=== PATIENT | male | born 1950 | race Caucasian/White ===

== ENCOUNTER 2019-03-16 13:05 | Inpatient (IN) | payer MEDICARE ==
[~2019-03-16 13:05] MED LIST: Iopamidol 370 76% 100 ML VIAL ONE
[2019-03-16 14:11] LABS: Hemoglobin 15.3 g/dL (14.0-18.0); Mean Corpuscular HGB CONC 33.7 g/dL (32.0-36.0); Mean Corpuscular Hemoglobin 33.5 pg (27.0-31.0); Mean Corpuscular Volume 99.4 fL (78.0-98.0); Platelet Count 154 thou/uL (130-400); RBC Distribution Width 11.8 % (11.5-14.5); Red Blood Cell (RBC) Count 4.56 mill/uL (4.70-6.10); White Blood Cell (WBC) Count 8.2 thou/uL (4.8-10.8)
[2019-03-16 14:26] LABS: Eosinophils 4 % (0-10); Lymphocytes 33 % (21-51); MDiff Complete? YES; Monocytes 9 % (0-10); Neutrophil 54 % (42-75); Platelet Clumps SLIGHT; Platelet Morphology Comment Appears Adequate; RBC Morphology Normal
[2019-03-16 14:37] LABS: ALT (SGPT) 31 U/L (8-55); AST (SGOT) 33 U/L (5-34); Albumin 4.5 g/dL (3.4-4.8); Alkaline Phosphatase 69 U/L (40-150); Anion Gap 15 mmol/L (10-20); BUN (Urea Nitrogen) 17 mg/dL (8.4-25.7); Bilirubin, Total 0.4 mg/dL (0.2-1.2); Calc. Creatinine Clearance 0 mL/min (70-130); Calcium 9.7 mg/dL (7.8-10.44); Carbon Dioxide 24 mmol/L (23-31); Cardiac Risk 5.6 (Less than 4.5); Chloride 104 mmol/L (98-107); Cholesterol 167 mg/dl (< 200 Desired); Estimated GFR-MDRD 61; Globulin 3.5 g/dL (2.4-3.5); Glucose 91 mg/dL (80-115); HDL Cholesterol 30 mg/dL (>60 Neg Risk); LDL Cholesterol, Calculated 69 mg/dL; Sodium 138 mmol/L (136-145); Triglycerides 341 mg/dL (Less than 150)
[2019-03-16] MEDS ORDERED: Lidocaine 1% (PF) 30 ML VIAL ONE (15:16)
[2019-03-16] MEDS ORDERED: Nitroglycerin 100MG/250ML BOT 250 ML ONE (15:31)
[2019-03-16] MEDS ORDERED: Heparin 10,000 UNITS/1 ML VIAL ONE (15:31)
[2019-03-16] MEDS ORDERED: Verapamil 5 MG/2 ML VIAL ONE (15:34)
[2019-03-16] MEDS ORDERED: Adenosine 6 MG/2 ML VIAL ONE (15:34)
[2019-03-16] MEDS ORDERED: Heparin 25,000 units/D5W 500 ML ONE (15:52)
[2019-03-16] MEDS ORDERED: Nitroglycerin 50 MG/250 ML BOT 250 ML ONE (15:52)
[2019-03-16] MEDS ORDERED: Nitroglycerin 50 MG/250 ML BOT 250 ML IVPB SCH (16:00)
[2019-03-16] MEDS ORDERED: Heparin 10,000 UNITS/ 10 ML VIAL SLOW IVP SCH (16:00)
[2019-03-16] MEDS ORDERED: Heparin 25,000 units/D5W 500 ML IVPB SCH (16:00)
[2019-03-16] MEDS ORDERED: Sodium Chloride 0.9% 200 ML IV PRN (16:10)
[2019-03-16] MEDS ORDERED: Acetaminophen/Codeine 30-300mg Tablet PO PRN ×2 (16:10)
[2019-03-16] MEDS ORDERED: Sodium Chloride 0.9% 1,000 ML IV SCH (16:10)
[2019-03-16] MEDS ORDERED: Nitroglycerin 0.4 MG TAB (25 Tab Bottle) SL PRN (16:10)
[2019-03-16] MEDS ORDERED: Communication Order-Pharmacy FS SCH (16:31)
[2019-03-16 17:27] LABS: Hemoglobin 15.2 g/dL (14.0-18.0); Platelet Count 241 thou/uL (130-400)
--- NOTE | 2019-03-16 20:18 | CON ---
DATE OF CONSULTATION: HISTORY OF PRESENT ILLNESS: A 68-year-old gentleman with a history of hypertension and dyslipidemia, and family history of heart disease, who has had about 2-3 months of chest pain with exertion and shortness of breath, perhaps for a year or so. 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 His says he leaves early in the morning and comes back late in the day. He saw Dr. Hsu today in the office and was brought in for cardiac catheterization showing relatively well-preserved left ventricular systolic function. The patient had extensive and diffuse coronary artery disease. Potential targets included a distal PDA, posterolateral, one or two proximal OM branches. The LAD may or may not be bypassable as it is diffusely and severely diseased throughout its entire course. Similarly, the distal circumflex which is occluded and fills from the right system, does not appear to be large enough after it exits groove to suggest bypass grafting. PAST SURGICAL HISTORY: Negative. SOCIAL HISTORY: The patient does not smoke since 1971. He drinks beer on a daily basis. He is . PHYSICAL EXAMINATION: GENERAL: On examination, he is alert and cooperative gentleman. VITAL SIGNS: Weighing 211 pounds, height 6 feet 1 inch. NECK: No carotid bruits. LUNGS: Clear to auscultation. CARDIAC: Regular rate and rhythm. No murmurs. ABDOMEN: Soft, nontender. No aneurysm. EXTREMITIES: He has palpable femoral and dorsalis pedis pulses bilaterally with no peripheral edema. He has a compression dressing on his right wrist and his left radial is palpable, and his Logan's test appears to be satisfactory. PLAN: At this time is for multi-vessel grafting, although this will be an incomplete revascularization and his LAD maybe a non-bypassable vessel. In any event, attempt at grafting two obtuse marginals and vessels in the right system should be able to be done. Informed consent has been obtained. Job ID: [id number]
[2019-03-17] MEDS ORDERED: Albumin 5% 500 ML ONE (06:34)
[2019-03-17] MEDS ORDERED: Fentanyl 250 MCG/5 ML VIAL ONE ×2 (09:28)
[2019-03-17] MEDS ORDERED: Midazolam HCl 5 mg/5 ml Vial ONE (09:28)
[2019-03-17] MEDS ORDERED: Heparin 10,000 UNITS/1 ML VIAL 30,000 UNITS in Sodium Chloride 0.9% 1,000 ML FS SCH (10:15)
[2019-03-17] MEDS ORDERED: Thrombin 5000 UNITS/5 ML VIAL ONE (10:37)
[2019-03-17] MEDS ORDERED: Protamine Sulfate 250 MG/25 ML VIAL ONE (10:37)
[2019-03-17] MEDS ORDERED: Aminocaproic Acid 5 GM/20 ML VIAL ONE (10:37)
[2019-03-17] MEDS ORDERED: Cardioplegic Soln 1,000 ML BAG ONE (10:37)
[2019-03-17] MEDS ORDERED: PROPOFOL 200 MG/20 ML VIAL ONE (10:37)
[2019-03-17] MEDS ORDERED: Vecuronium 10 MG VIAL ONE (10:37)
[2019-03-17] MEDS ORDERED: Lidocaine 2% PF 100 mg/5 ml Syringe ONE (10:37)
[2019-03-17] MEDS ORDERED: Magnesium 5 GM/10 ML VIAL ONE (10:37)
[2019-03-17] MEDS ORDERED: Heparin 30,000 units/30 ml VIAL ONE (10:37)
[2019-03-17] MEDS ORDERED: Heparin 5,000 UNITS/ML VIAL ONE (10:37)
[2019-03-17] MEDS ORDERED: Mannitol 12.5 GM/50 ML ONE (10:37)
[2019-03-17] MEDS ORDERED: Papaverine 60 MG/2 ML VIAL ONE (10:37)
[2019-03-17] MEDS ORDERED: Rocuronium Bromide 10 MG/ML (10ML VIAL) ONE (10:37)
[2019-03-17] MEDS ORDERED: Calcium Chloride 1 GM/10 ML Abboject SYRINGE ONE (10:37)
[2019-03-17] MEDS ORDERED: Potassium Chloride 60 MEQ/30 ML VIAL ONE (10:37)
[2019-03-17] MEDS ORDERED: Sodium Bicarb 50 MEQ/50 ML VIAL ONE ×2 (10:37→16:59)
[2019-03-17] MEDS ORDERED: PHENYLEPHRINE-NS 100 MCG/ML 10 ML SYRINGE ONE (10:37)
--- NOTE | 2019-03-17 11:54 | PRG ---
DATE OF SERVICE: 03/17/2019 SUBJECTIVE: Mr. Mariano is doing well. He did have an episode of chest pain that was short-lived. He is currently chest pain free. He is on IV nitroglycerin and heparin. OBJECTIVE: VITAL SIGNS: Blood pressure 159/81, pulse 66, and temperature afebrile. LUNGS: Clear to auscultation. HEART: Regular rate and rhythm. ABDOMEN: Soft, nontender, and nondistended. EXTREMITIES: No edema. DIAGNOSTIC DATA: Echo with Doppler shows LVEF 50% to 55%. No significant MR or TR present. IMPRESSION: 1. Severe coronary artery disease. 2. Angina. RECOMMENDATIONS: The patient is planning on proceeding with bypass surgery today. No further recommendations. Job ID: [id number]
[2019-03-17] MEDS ORDERED: Phenylephrine HCL 10 MG/ML VIAL ONE (11:57)
--- NOTE | 2019-03-17 12:11 | CON ---
DATE OF CONSULTATION: HISTORY OF PRESENT ILLNESS: Rohith Mariano is a 68-year-old gentleman, long history of smoking, quit smoking in 1971. Presented with chest pain and shortness of breath. Underwent cardiac catheterization, showed carotid disease. He is scheduled for bypass surgery today. On further questioning him, no prior history of pneumonia, TB, or asthma. He does snore, does wake himself up, he may have sleep apnea. PAST MEDICAL HISTORY: Otherwise unremarkable for any major medical problems. PAST SURGICAL HISTORY: Previous surgeries none. HOME MEDICATIONS: 1. Zocor. 2. Aspirin. ALLERGIES: NONE. SOCIAL HISTORY: Unremarkable. FAMILY HISTORY: Unremarkable. REVIEW OF SYSTEMS: Negative. PHYSICAL EXAMINATION: VITAL SIGNS: Saturations are 96% on room air, pulse 63, respiratory rate 18, and blood pressure 118/76. CHEST: No wheezing or crackles. CARDIAC: Normal S1 and S2. No gallops. ABDOMEN: No masses. LABORATORY DATA: White count 8000. His lytes are normal. Creatinine 1.8. IMPRESSION AND PLAN: 1. Coronary artery disease. 2. Former smoker. 3. Probably sleep apnea. Pulmonary/Critical Care will follow while in the ICU, probably we will do an outpatient sleep study. Consultation note, 70 minutes, 50% direct patient care. Job ID: [id number]
[2019-03-17] MEDS ORDERED: Rocuronium Bromide 50 MG/5 ML VIAL ONE (14:34)
[2019-03-17] MEDS ORDERED: Albumin 5% 250 ML ONE ×2 (15:25→15:40)
[2019-03-17] MEDS ORDERED: DOPamine 400 MG/D5W 250 ML 250 ML ONE (15:41)
[2019-03-17] MEDS ORDERED: Ondansetron PF 4 MG/2 ML Vial IVP PRN (15:44)
[2019-03-17] MEDS ORDERED: Fentanyl 100 MCG/2 ML VIAL SLOW IVP PRN ×2 (15:44)
[2019-03-17] MEDS ORDERED: Mag-Al 1200 mg/1200 mg/30 ML UDCUP PO PRN (15:44)
[2019-03-17] MEDS ORDERED: Acetaminophen 325 MG TAB PO PRN (15:44)
[2019-03-17] MEDS ORDERED: Promethazine HCl 25 MG/ML VIAL IM PRN (15:44)
[2019-03-17] MEDS ORDERED: Potassium Chloride 20 MEQ/100 ML PREMIX BAG IVPB PRN (15:44)
[2019-03-17] MEDS ORDERED: Post-Op Insulin Drip Protocol IVPB ONE (15:44)
[2019-03-17] MEDS ORDERED: Morphine 2 MG/ML SYRINGE SLOW IVP PRN (15:44)
[2019-03-17] MEDS ORDERED: Bisacodyl 5 MG TAB PO PRN (15:44)
[2019-03-17] MEDS ORDERED: DOPamine 400 MG/D5W 250 ML 250 ML IVPB PRN (15:44)
[2019-03-17] MEDS ORDERED: Nitroglycerin 50 MG/250 ML BOT 250 ML IVPB PRN (15:44)
[2019-03-17] MEDS ORDERED: Magnesium 2 GM/50 ML 2 GM in Premix Bag 1 BAG IVPB SCH (15:44)
[2019-03-17] MEDS ORDERED: Norepinephrine 8 MG/0.9% NS 250 ML IVPB PRN (15:44)
[2019-03-17] MEDS ORDERED: Hetastarch 6% 500 ML 500 ML IVPB PRN (15:44)
[2019-03-17] MEDS ORDERED: Bisacodyl 10 MG SUPP PR PRN (15:44)
[2019-03-17] MEDS ORDERED: Guaifenesin DM 100-10/5 ML UDCUP PO PRN (15:44)
[2019-03-17] MEDS ORDERED: niCARdipine 25 MG in Sodium Chloride 0.9% 250 ML 250 ML IVPB PRN (15:44)
[2019-03-17] MEDS ORDERED: hydrALAZINE 20 MG/ML VIAL SLOW IVP PRN (15:44)
[2019-03-17] MEDS ORDERED: Norepinephrine 8 MG in Dextrose 5% in Water 242 ML IVPB PRN (15:49)
[2019-03-17] MEDS ORDERED: HUMULIN R 100 UNITS in Sodium Chloride 0.9% 100 ML IVPB SCH (15:51)
[2019-03-17] MEDS ORDERED: Dextrose 50% Abboject 50 ML SYRINGE SLOW IVP PRN (15:51)
[2019-03-17] MEDS ORDERED: Dextrose 5% in Water 1,000 ML IV PRN (15:51)
[2019-03-17 15:55] LABS: #Eosinphils 0.1 thou/uL (0.0-0.7); #Lymphocytes 2.3 thou/uL (1.20-3.40); #Monocytes 1.1 thou/uL (0.11-0.59); %Basophils 0.1 % (0.0-1.0); %Eosinophils 0.6 % (0.0-10.0); %Lymphocytes 11.7 % (21.0-51.0); %Monocytes 5.8 % (0.0-10.0); %Neutrophils 81.8 % (42.0-75.0); Hemoglobin 13.5 g/dL (14.0-18.0); Mean Corpuscular HGB CONC 34.6 g/dL (32.0-36.0); Mean Corpuscular Hemoglobin 34.5 pg (27.0-31.0); Mean Corpuscular Volume 99.7 fL (78.0-98.0); Mean Platelet Volume 8.1 fL (7.4-10.4); Platelet Count 163 thou/uL (130-400); RBC Distribution Width 11.7 % (11.5-14.5); Red Blood Cell (RBC) Count 3.92 mill/uL (4.70-6.10); White Blood Cell (WBC) Count 19.5 thou/uL (4.8-10.8)
--- NOTE | 2019-03-17 15:57 | RAD ---
Portable frontal chest radiograph: 03/17/2019 COMPARISON: None HISTORY: Evaluate chest following open heart surgery FINDINGS: Endotracheal tube noted in the proper position. Right vascular catheter present. Midline sternotomy wires are present. Postsurgical drainage catheters overlie the mediastinum and lef t lung base. No lobar consolidation or alveolar edema. Supine imaging limits assessment for pleural fluid and pneumothorax. IMPRESSION: Postoperative changes as above.
[2019-03-17] MEDS: Lactated Ringer's 1,000 ML IV SCH (15:58)
[2019-03-17 16:06] LABS: INR-International Normal Ratio 1.3; PTT 24.9 SEC (22.9-36.1); Prothrombin Time 16.1 SEC (12.0-14.7)
[2019-03-17 16:11] LABS: Actual Bicarbonate (HCO3a) 18.5 mEq/L (22-28); Base Excess (BEa) -7.3 mEq/L (-2.0 to +3.0); CO2 Tension 38.2 mmHg (35.0-45.0); Calcium, Ionized 1.08 mmol/L (1.12-1.30); Carboxyhemoglobin (COHb) 1.1 gm% (0.0-3.0); Hemoglobin (Hb) 13.1 g/dL (14.0-18.0); O2 Tension (PaO2) 97.8 mmHg (> 70.0); Potassium - ABG Lab 4.04 mmol/L (3.70-5.30)
[2019-03-17 16:12] LABS: Anion Gap 11 mmol/L (10-20); BUN (Urea Nitrogen) 12 mg/dL (8.4-25.7); Calc. Creatinine Clearance 102 mL/min (70-130); Calcium 7.9 mg/dL (7.8-10.44); Carbon Dioxide 22 mmol/L (23-31); Chloride 109 mmol/L (98-107); Estimated GFR-MDRD 82; Glucose 106 mg/dL (80-115); Potassium 4.3 mmol/L (3.5-5.1); Sodium 138 mmol/L (136-145)
[2019-03-17 16:15] LABS: Puncture Site ALINE
[2019-03-17] MEDS: Ketorolac Tromethamine 30 MG/ML VIAL IVP SCH (18:17)
[2019-03-17] MEDS: CEFAZOLIN 2 GM in Premix Bag 1 BAG IVPB SCH (18:21)
[2019-03-17] MEDS: Insulin Regular 300 UNITS/3 ML VIAL SC PRN (20:21)
[2019-03-17] MEDS: Famotidine/PF 20 mg/2ml Vial SLOW IVP SCH (20:21)
[2019-03-17] MEDS ORDERED: Simvastatin 40 MG TAB PO SCH (21:00)
[2019-03-17 21:37] LABS: Actual Bicarbonate (HCO3a) 22.7 mEq/L (22-28); CO2 Tension 38.3 mmHg (35.0-45.0); Calcium, Ionized 1.04 mmol/L (1.12-1.30); Carboxyhemoglobin (COHb) 0.9 gm% (0.0-3.0); Hemoglobin (Hb) 12.2 g/dL (14.0-18.0); O2 Tension (PaO2) 79.5 mmHg (> 70.0); Potassium - ABG Lab 4.14 mmol/L (3.70-5.30); pH, Arterial 7.39 (7.35-7.45)
[2019-03-17 21:40] LABS: Hemoglobin 11.9 g/dL (14.0-18.0)
[2019-03-17 21:49] LABS: Potassium 4.2 mmol/L (3.5-5.1)
[2019-03-17 22:01] LABS: ALV-art Gradient 157.825 (0-20); Puncture Site LINE
[2019-03-18] MEDS: Ketorolac Tromethamine 30 MG/ML VIAL IVP SCH ×4 (00:11→17:27)
[2019-03-18] MEDS: Insulin Regular 300 UNITS/3 ML VIAL SC PRN ×4 (00:14→17:27)
[2019-03-18] MEDS: CEFAZOLIN 2 GM in Premix Bag 1 BAG IVPB SCH ×2 (01:03→09:46)
[2019-03-18] MEDS: HYDROcodone/Acetaminophen 5/325 mg Tablet PO PRN ×4 (03:30→20:04)
[2019-03-18 04:32] LABS: #Lymphocytes 0.8 thou/uL (1.20-3.40); #Monocytes 0.7 thou/uL (0.11-0.59); #Neutrophils 9.1 thou/uL (1.40-6.50); %Lymphocytes 7.3 % (21.0-51.0); %Monocytes 6.6 % (0.0-10.0); %Neutrophils 86.1 % (42.0-75.0); Hemoglobin 10.8 g/dL (14.0-18.0); Mean Corpuscular HGB CONC 34.8 g/dL (32.0-36.0); Mean Corpuscular Hemoglobin 34.7 pg (27.0-31.0); Mean Corpuscular Volume 99.7 fL (78.0-98.0); Mean Platelet Volume 8.8 fL (7.4-10.4); Platelet Count 154 thou/uL (130-400); RBC Distribution Width 11.6 % (11.5-14.5); Red Blood Cell (RBC) Count 3.12 mill/uL (4.70-6.10); White Blood Cell (WBC) Count 10.6 thou/uL (4.8-10.8)
[2019-03-18 04:49] LABS: Anion Gap 11 mmol/L (10-20); BUN (Urea Nitrogen) 15 mg/dL (8.4-25.7); Calc. Creatinine Clearance 103 mL/min (70-130); Calcium 7.8 mg/dL (7.8-10.44); Carbon Dioxide 23 mmol/L (23-31); Chloride 109 mmol/L (98-107); Estimated GFR-MDRD 83; Glucose 124 mg/dL (80-115); Sodium 139 mmol/L (136-145)
[2019-03-18] MEDS: Lactated Ringer's 1,000 ML IV SCH ×2 (07:01→13:35)
--- NOTE | 2019-03-18 07:59 | RAD ---
Chest AP view INDICATION: Status post open-heart surgery COMPARISON: March 17, 2019 FINDINGS: Lungs:There is worsening bibasilar atelectasis Cardiac silhouette:There is stable mild cardiomegaly Pulmonary vasculature:Normal Pleural spaces:No pleural effusion or pneumothorax is demonstrated. Upper abdomen:No abnormality seen. Osseous structures: No acute osseous abnormality. Additional findings:The patient has been intervally extubated. Right subclavian central venous cathet er is unchanged in position. IMPRESSION: Interval extubation. Development of bibasilar atelectasis. Repeat chest radiograph with i mproved aeration is recommended. No pneumothorax. Stable cardiomegaly.
--- NOTE | 2019-03-18 08:23 | OP ---
DATE OF PROCEDURE: 03/17/2019 PREOPERATIVE DIAGNOSIS: Coronary artery disease, diffuse severe disease. PROCEDURE: Coronary artery bypass graft x5, good quality LEAL to a poor-quality LAD as expected, saphenous vein good quality to a 1.5 mm acute marginal and 1.25 mm posterior lateral. PDA was non-bypassable. The radial artery from the left arm to the OM-2 which was a surprisingly diseased vessel and had to be done after the bifurcation due to heavy calcification proximal to this. Saphenous vein graft to a 1.5 mm OM1. ASSISTANTS: Zoran. DESCRIPTION OF PROCEDURE: After adequate anesthesia had been obtained, the patient was prepped and draped and Dr. Last did an endovascular vein harvest of the left greater saphenous vein while I performed a left radial artery harvest. Radial artery harvest was performed for anticipated OM graft. Following completion of this, and after ensuring good collateral flow prior to dividing the vessel, sternotomy was performed and the left internal mammary artery was harvested, divided distally and passed posterior to the thymus gland. Aorta and right atrium were cannulated. Cardiopulmonary bypass was begun. Aorta was crossclamped. A liter of cold blood cardioplegia given through the aortic root. The heart was not enlarged or thickened. Distal anastomoses were all completed, following which the cross-clamp was removed and the partial occluding clamp placed and the acute marginal vein graft was anastomosed to the aortic root as well as the OM-1 graft. To the aden of the OM-1 graft, the radial artery was anastomosed. The partial occluding clamp was removed and the posterolateral vein graft was anastomosed to the side of the acute marginal graft. The patient was then weaned from cardiopulmonary bypass. Cannula was removed and aortic cannulation site secured with a Prolene suture. Mediastinal and left pleural drains were placed, following which the sternum was reapproximated with #7 interrupted wire. Vancomycin paste was used on the sternal edges. Subcutaneous tissue and skin were closed in layers. The patient is to be taken to the ICU in guarded condition. No reoperation due to poor targets. Job ID: [id number]
[2019-03-18] MEDS: Famotidine/PF 20 mg/2ml Vial SLOW IVP SCH ×2 (08:27→20:10)
[2019-03-18] MEDS: Aspirin 325 MG TAB PO SCH (08:27)
--- NOTE | 2019-03-18 09:34 | PRG ---
DATE OF SERVICE: 03/18/2019 SUBJECTIVE: This morning, he is extubated post CABG. No distress. He is complaining of congestion, coughing up some light yellow sputum. OBJECTIVE: VITAL SIGNS: Temperature is 97, pulse 81, saturations are 90%, blood pressure 99/59. CHEST: Minimal rhonchi. CARDIAC: Normal S1 and S2. No gallops. ABDOMEN: No masses. LABORATORY DATA: White count 10,000. Lytes are normal. IMAGING DATA: X-ray shows minimal bibasilar atelectatic changes. IMPRESSION: 1. Status post coronary artery bypass grafting. 2. Congestive heart failure. 3. Bronchitis. PLAN: Continue PT, supportive care. We will follow while in the ICU. Outpatient sleep study. Job ID: [id number]
[2019-03-18 15:01] LABS: Actual Bicarbonate (HCO3a) 22.1 mEq/L (22-28); Analyzer IN Cardio OR; Base Excess (BEa) -1.4 mEq/L (-2.0 to +3.0); CO2 Tension 33.9 mmHg (35.0-45.0); Calcium, Ionized 1.09 mmol/L (1.12-1.30); Carboxyhemoglobin (COHb) 0.3 gm% (0.0-3.0); Hemoglobin (Hb) 13.2 g/dL (14.0-18.0); O2 Tension (PaO2) 396.1 mmHg (> 70.0); Potassium - ABG Lab 3.95 mmol/L (3.70-5.30); pH, Arterial 7.43 (7.35-7.45)
[2019-03-18 15:02] LABS: Actual Bicarbonate (HCO3a) 23.9 mEq/L (22-28); Analyzer IN Cardio OR; Base Excess (BEa) -1.6 mEq/L (-2.0 to +3.0); CO2 Tension 43.1 mmHg (35.0-45.0); Calcium, Ionized 1.06 mmol/L (1.12-1.30); Carboxyhemoglobin (COHb) 0.3 gm% (0.0-3.0); Hemoglobin (Hb) 12.7 g/dL (14.0-18.0); O2 Tension (PaO2) 431.9 mmHg (> 70.0); Potassium - ABG Lab 4.28 mmol/L (3.70-5.30); pH, Arterial 7.36 (7.35-7.45)
[2019-03-18 15:02] LABS: Analyzer IN Cardio OR; Base Excess (BEa) -1.5 mEq/L (-2.0 to +3.0); Calcium, Ionized 0.95 mmol/L (1.12-1.30); Carboxyhemoglobin (COHb) 0.1 gm% (0.0-3.0); Hemoglobin (Hb) 10.9 g/dL (14.0-18.0); O2 Tension (PaO2) 477.5 mmHg (> 70.0); Potassium - ABG Lab 5.03 mmol/L (3.70-5.30); pH, Arterial 7.44 (7.35-7.45)
[2019-03-18 15:03] LABS: Actual Bicarbonate (HCO3v) 25 mEq/L (22-28); Analyzer IN Cardio OR; Calcium, Ionized 1.01 mmol/L (1.16-1.32); Chloride (ABG LAB) 105 mmol/L (98-106); Hemoglobin (Hb) 10.7 g/dL (12.6-17.4); Potassium - ABG Lab 4.97 mmol/L (3.70-5.30); Sodium 136.1 mmol/L (133-146); pH (venous) 7.39 (7.32-7.43)
[2019-03-18 15:03] LABS: Analyzer IN Cardio OR; Base Excess (BEa) -1.1 mEq/L (-2.0 to +3.0); Calcium, Ionized 1.01 mmol/L (1.12-1.30); Carboxyhemoglobin (COHb) 0.3 gm% (0.0-3.0); Hemoglobin (Hb) 11.1 g/dL (14.0-18.0); O2 Tension (PaO2) 478.2 mmHg (> 70.0); Potassium - ABG Lab 5.19 mmol/L (3.70-5.30); pH, Arterial 7.34 (7.35-7.45)
[2019-03-18 15:04] LABS: Actual Bicarbonate (HCO3a) 22.8 mEq/L (22-28); Analyzer IN Cardio OR; Base Excess (BEa) -2.2 mEq/L (-2.0 to +3.0); CO2 Tension 40.3 mmHg (35.0-45.0); Calcium, Ionized 1.09 mmol/L (1.12-1.30); Carboxyhemoglobin (COHb) 0.4 gm% (0.0-3.0); O2 Tension (PaO2) 372.1 mmHg (> 70.0); Potassium - ABG Lab 4.47 mmol/L (3.70-5.30); pH, Arterial 7.37 (7.35-7.45)
[2019-03-18 15:04] LABS: Actual Bicarbonate (HCO3a) 23.1 mEq/L (22-28); Analyzer IN Cardio OR; Base Excess (BEa) -2.1 mEq/L (-2.0 to +3.0); CO2 Tension 41.4 mmHg (35.0-45.0); Calcium, Ionized 1.11 mmol/L (1.12-1.30); Carboxyhemoglobin (COHb) 0.1 gm% (0.0-3.0); Hemoglobin (Hb) 11.2 g/dL (14.0-18.0); O2 Tension (PaO2) 329.1 mmHg (> 70.0); Potassium - ABG Lab 4.77 mmol/L (3.70-5.30); pH, Arterial 7.37 (7.35-7.45)
[2019-03-18 15:06] LABS: Puncture Site ALINE
[2019-03-18 15:07] LABS: Puncture Site ALINE
[2019-03-18 15:07] LABS: Puncture Site ALINE
[2019-03-18 15:08] LABS: Puncture Site ALINE
[2019-03-18 15:08] LABS: Puncture Site ALINE
[2019-03-18 15:09] LABS: Puncture Site ALINE
[2019-03-18] MEDS: Atorvastatin Calcium 40 MG TAB PO SCH (20:10)
[2019-03-19] MEDS: Ketorolac Tromethamine 30 MG/ML VIAL IVP SCH ×4 (00:13→17:56)
[2019-03-19 04:44] LABS: #Lymphocytes 1.2 thou/uL (1.20-3.40); #Monocytes 1.2 thou/uL (0.11-0.59); #Neutrophils 11.9 thou/uL (1.40-6.50); %Basophils 0.1 % (0.0-1.0); %Lymphocytes 8.6 % (21.0-51.0); %Monocytes 8.3 % (0.0-10.0); Hemoglobin 12.2 g/dL (14.0-18.0); Mean Corpuscular HGB CONC 34.7 g/dL (32.0-36.0); Mean Corpuscular Hemoglobin 32.8 pg (27.0-31.0); Mean Corpuscular Volume 94.4 fL (78.0-98.0); Platelet Count 198 thou/uL (130-400); RBC Distribution Width 11.4 % (11.5-14.5); Red Blood Cell (RBC) Count 3.73 mill/uL (4.70-6.10); White Blood Cell (WBC) Count 14.4 thou/uL (4.8-10.8)
[2019-03-19 05:11] VITALS: BMI 28.5
[2019-03-19 05:12] LABS: Anion Gap 9 mmol/L (10-20); BUN (Urea Nitrogen) 16 mg/dL (8.4-25.7); Calc. Creatinine Clearance 89 mL/min (70-130); Calcium 7.8 mg/dL (7.8-10.44); Carbon Dioxide 24 mmol/L (23-31); Chloride 106 mmol/L (98-107); Estimated GFR-MDRD 68; Glucose 148 mg/dL (80-115); Potassium 4.3 mmol/L (3.5-5.1); Sodium 135 mmol/L (136-145)
[2019-03-19] MEDS: Famotidine/PF 20 mg/2ml Vial SLOW IVP SCH (08:44)
[2019-03-19] MEDS: Aspirin 325 MG TAB PO SCH (08:44)
--- NOTE | 2019-03-19 09:57 | RAD ---
FRONTAL RADIOGRAPH OF CHEST PORTABLE UPRIGHT: Date: 03/19/19 COMPARISON: 03/18/19. HISTORY: Evaluate chest following open heart surgery. FINDINGS: Stable midline sternotomy wires and right-sided vascular catheter. Stable drainage catheter overlies the left lung base. There is increased linear density in both lung bases suggesting bibasilar volume loss or infiltrate. IMPRESSION: No significant interval change. POS: OFF
[2019-03-19] MEDS ORDERED: Mineral Oil ENEMA PR PRN (10:38)
[2019-03-19] MEDS ORDERED: Bisacodyl 5 MG TAB PO PRN (10:38)
[2019-03-19] MEDS ORDERED: Nitroglycerin 0.4 MG TAB (25 Tab Bottle) SL PRN (10:38)
[2019-03-19] MEDS ORDERED: Zolpidem Tartrate 5 MG TAB PO PRN (10:38)
[2019-03-19] MEDS ORDERED: Guaifenesin DM 100-10/5 ML UDCUP PO PRN (10:38)
[2019-03-19] MEDS ORDERED: Artificial Tears 18 DROP/0.9 ML EA EYE PRN (10:38)
[2019-03-19] MEDS ORDERED: Mag-Al 1200 mg/1200 mg/30 ML UDCUP PO PRN (10:38)
[2019-03-19] MEDS ORDERED: Bisacodyl 10 MG SUPP PR PRN (10:38)
[2019-03-19] MEDS ORDERED: Furosemide 40 MG/4 ML VIAL ONE (11:09)
[2019-03-19] MEDS: HYDROcodone/Acetaminophen 5/325 mg Tablet PO PRN ×2 (11:14→21:01)
[2019-03-19] MEDS: Furosemide 40 MG/4 ML VIAL SLOW IVP SCH (11:15)
[2019-03-19] MEDS ORDERED: guaiFENesin/Codeine Phosphate 200 mg/20 mg 10 ml UD Cup PO PRN (12:20)
[2019-03-19] MEDS: Benzonatate 100 MG CAP PO SCH ×2 (13:42→21:00)
[2019-03-19] MEDS: Ipratropium Bromide 0.06% Nasal Inhaler 15ml NASAL SCH (13:42)
--- NOTE | 2019-03-19 17:33 | PRG ---
DATE OF SERVICE: 03/19/2019 SUBJECTIVE: Mr. Mariano is in no distress, but he is complaining of a cough when he lays down. Said it kept him from sleeping last night. His says he has a history of allergies and sinus drainage issues. OBJECTIVE: VITAL SIGNS: He is afebrile. Heart rate 80, blood pressure 173/74, respiratory rate is 20. HEAD AND NECK: Unremarkable. LUNGS: Clear. HEART: Regular rate and rhythm. S1 and S2 are normal. ABDOMEN: Soft and nontender. EXTREMITIES: Without edema. LABORATORY DATA: White count 14.4, hemoglobin 12.2, platelets 198. Sodium 135, potassium 4.3, chloride 106, bicarb 24, BUN 16, and creatinine 1.08, and glucose 148. IMPRESSION: 1. Status post coronary artery bypass grafting. 2. Upper airway cough. 3. Atelectasis. His today's chest radiograph is unchanged. PLAN: We will follow the other physicians. I will add nasal ipratropium, Tessalon Perles, and Robitussin with codeine, which may help him sleep. Job ID: [id number]
[2019-03-19] MEDS: Atorvastatin Calcium 40 MG TAB PO SCH (20:58)
[2019-03-19] MEDS: guaiFENesin ER 600 MG TAB PO SCH (20:59)
[2019-03-19] MEDS: Docusate 100 MG CAP PO SCH (20:59)
[2019-03-19] MEDS: diphenhydrAMINE 25 MG CAP PO PRN (21:01)
[2019-03-19] MEDS: Metoprolol Tartrate 25 MG TAB PO SCH (21:04)
[2019-03-20] MEDS: Ketorolac Tromethamine 30 MG/ML VIAL IVP SCH ×4 (00:22→17:35)
[2019-03-20] MEDS: Ipratropium Bromide 0.06% Nasal Inhaler 15ml NASAL SCH ×3 (00:27→20:48)
[2019-03-20 05:58] LABS: #Eosinphils 0.1 thou/uL (0.0-0.7); #Lymphocytes 2.1 thou/uL (1.20-3.40); #Monocytes 0.8 thou/uL (0.11-0.59); %Basophils 0.2 % (0.0-1.0); %Eosinophils 0.9 % (0.0-10.0); %Lymphocytes 19.3 % (21.0-51.0); %Monocytes 7.2 % (0.0-10.0); %Neutrophils 72.5 % (42.0-75.0); Hemoglobin 9.9 g/dL (14.0-18.0); Mean Corpuscular HGB CONC 33.4 g/dL (32.0-36.0); Mean Corpuscular Hemoglobin 34.1 pg (27.0-31.0); Platelet Count 148 thou/uL (130-400); Red Blood Cell (RBC) Count 2.91 mill/uL (4.70-6.10)
[2019-03-20 06:14] LABS: Anion Gap 11 mmol/L (10-20); BUN (Urea Nitrogen) 21 mg/dL (8.4-25.7); Calc. Creatinine Clearance 101 mL/min (70-130); Calcium 8.5 mg/dL (7.8-10.44); Carbon Dioxide 28 mmol/L (23-31); Chloride 103 mmol/L (98-107); Estimated GFR-MDRD 77; Glucose 116 mg/dL (80-115); Potassium 3.7 mmol/L (3.5-5.1); Sodium 138 mmol/L (136-145)
[2019-03-20] MEDS: Aspirin 325 MG TAB PO SCH (09:06)
[2019-03-20] MEDS: Docusate 100 MG CAP PO SCH ×2 (09:06→20:49)
[2019-03-20] MEDS: Benzonatate 100 MG CAP PO SCH ×3 (09:06→20:49)
[2019-03-20] MEDS: guaiFENesin ER 600 MG TAB PO SCH ×2 (09:07→20:49)
[2019-03-20] MEDS: Metoprolol Tartrate 25 MG TAB PO SCH ×2 (09:07→20:49)
[2019-03-20] MEDS: Furosemide 40 MG/4 ML VIAL SLOW IVP SCH (09:07)
[2019-03-20] MEDS: Aspirin 325 mg Enteric Coated Tablet PO SCH (09:20)
--- NOTE | 2019-03-20 09:38 | RAD ---
FRONTAL RADIOGRAPH CHEST: Date: 03/20/19 COMPARISON: 03/19/19. HISTORY: Evaluate chest following open heart surgery. FINDINGS: Aeration in the right base has improved with mild residual patchy opacity. Stable right vascular cath eter and midline sternotomy wires/mediastinal clips. There is increased density within the left lung base abutting the left hemidiaphragm with blunting of the left costophrenic angle consistent with non specific pleural and parenchymal opacity, similar when compared to prior imaging. IMPRESSION: Persistent pleural and parenchymal opacity within the left base. Improved aeration of the right base. Continued follow-up advised. POS: OFF
[2019-03-20] MEDS: Febuxostat 40 MG TAB PO SCH (09:54)
--- NOTE | 2019-03-20 15:33 | PRG ---
DATE OF SERVICE: 03/20/2019 SUBJECTIVE: Kostas Mariano says he is feeling much better. He had a good night. Unfortunately, somehow his nasal ipratropium did not get transferred with him to the telemetry unit, so he had not received his dose this morning. OBJECTIVE: VITAL SIGNS: Have been stable. He is afebrile. Heart rate is 70, respiratory rate is 18, oximetry is 95% on room air, blood pressure is 142/66. LUNGS: Clear. IMPRESSION: 1. Status post coronary artery bypass grafting. 2. Upper airway cough, improving. 3. Atelectasis with an improved chest x-ray today and small left effusion, most likely. Overall, he appears to be stable. Job ID: [id number]
[2019-03-20] MEDS: Atorvastatin Calcium 40 MG TAB PO SCH (20:49)
[2019-03-20] MEDS: diphenhydrAMINE 25 MG CAP PO PRN (20:50)
[2019-03-21 06:26] LABS: #Eosinphils 0.1 thou/uL (0.0-0.7); #Lymphocytes 1.7 thou/uL (1.20-3.40); #Monocytes 0.9 thou/uL (0.11-0.59); #Neutrophils 7.2 thou/uL (1.40-6.50); %Basophils 0.2 % (0.0-1.0); %Eosinophils 1.4 % (0.0-10.0); %Lymphocytes 17.3 % (21.0-51.0); %Neutrophils 72.2 % (42.0-75.0); Mean Corpuscular HGB CONC 33.7 g/dL (32.0-36.0); Mean Corpuscular Hemoglobin 34.3 pg (27.0-31.0); Mean Platelet Volume 9.2 fL (7.4-10.4); Platelet Count 168 thou/uL (130-400); RBC Distribution Width 11.8 % (11.5-14.5); Red Blood Cell (RBC) Count 2.92 mill/uL (4.70-6.10)
[2019-03-21 06:43] LABS: Anion Gap 11 mmol/L (10-20); BUN (Urea Nitrogen) 24 mg/dL (8.4-25.7); Calc. Creatinine Clearance 115 mL/min (70-130); Calcium 8.7 mg/dL (7.8-10.44); Carbon Dioxide 26 mmol/L (23-31); Chloride 104 mmol/L (98-107); Estimated GFR-MDRD 90; Glucose 107 mg/dL (80-115); Potassium 3.6 mmol/L (3.5-5.1); Sodium 137 mmol/L (136-145)
[2019-03-21 07:19] VITALS: TEMP 97.6
--- NOTE | 2019-03-21 08:54 | RAD ---
CHEST 1 VIEW: Date: 03/21/19 HISTORY: Post coronary artery bypass graft. COMPARISON: 03/20/19. FINDINGS: Persistent pleural and parenchymal opacity changes in both bases, more so in the left base, stable. N o new process. IMPRESSION: Stable bibasilar pleural and parenchymal opacity changes. Continue follow-up for clearing and stabili ty. POS: [place]
[2019-03-21] MEDS: Ipratropium Bromide 0.06% Nasal Inhaler 15ml NASAL SCH (08:58)
[2019-03-21] MEDS: Furosemide 40 MG/4 ML VIAL SLOW IVP SCH (09:00)
[2019-03-21] MEDS: guaiFENesin ER 600 MG TAB PO SCH (09:00)
[2019-03-21] MEDS: Benzonatate 100 MG CAP PO SCH (09:01)
[2019-03-21] MEDS: Aspirin 325 MG TAB PO SCH (09:01)
[2019-03-21] MEDS: Docusate 100 MG CAP PO SCH (09:01)
[2019-03-21] MEDS: Metoprolol Tartrate 25 MG TAB PO SCH (09:01)
[2019-03-21] MEDS: Aspirin 325 mg Enteric Coated Tablet PO SCH (09:01)
[2019-03-21] MEDS: Febuxostat 40 MG TAB PO SCH (09:02)
[2019-03-21 14:27] VITALS: BP 185/84
--- NOTE | 2019-03-22 00:59 | DIS ---
DATE OF ADMISSION: 03/16/2019 DATE OF DISCHARGE: 03/21/2019 PRINCIPAL DIAGNOSIS: Coronary artery disease. PROCEDURES PERFORMED: Coronary artery bypass grafting x5 with left internal mammary artery to the LAD, left radial artery to the OM 2, and reverse greater saphenous vein grafts from the aorta to the first obtuse marginal, the posterolateral branch of the right and right coronary acute marginal on 03/17/2019. HISTORY OF PRESENT ILLNESS AND HOSPITAL COURSE: The patient is a 68-year-old hypertensive man with about 2-3 month history of exertional chest pain and dyspnea. Cardiac catheterization showed extensive coronary artery disease, but preserved left ventricular systolic function. He underwent surgical revascularization and was extubated on the day of surgery. He was somewhat orthostatic on postoperative day #1, but feeling much better by postoperative day #2. His chest tubes and Wilkerson were removed. Lopressor was added and he was transferred to the telemetry [place]. His level of activity gradually increased and today on postoperative day #4, he is doing well on Lopressor 25 mg b.i.d., sinus rhythm in the 60 to 80 range, and blood pressure of 110-115/55-65. He is also being given a prescription for [place] as needed for pain and he is to resume most of his home medications that include statin. Job ID: [id number]
--- NOTE | 2019-03-23 05:37 | PQF ---
HUBERT FRAZIER GEORG [id number] CLINICAL DOCUMENTATION CLARIFICATION FORM: POST DISCHARGE Addendum to original discharge summary date: ____ Late entry note date: __ DATE:03-23-2019 ATTN:Dr. Regalado, Please exercise your independent, professional judgment in responding to the clarification form. Clinical indicators are provided on the bottom of this form for your review Based on your clinical judgment kindly clarify the type and acuity of the patients CHF. Please check appropriate box(s): A. TYPE: [ ] Systolic / HFrEF [ ] Diastolic / HFpEF [ ] Combined Systolic / Diastolic B. ACUITY [ ] Acute [ ] Acute on Chronic [ ] Chronic [ ] Other diagnosis please specify: [ ] Unable to determine In addition, please specify: Present on Admission (POA): [ ] Yes [ ] No [ ] Unable to determine For continuity of documentation, please document condition throughout progress notes and discharge summary. Thank You. CLINICAL INDICATORS: HP 03/[address] Hsu Pt evaluated for chest pain for 2 months Consult 03/16 pg,1 Dr. Oconnor 2-3 mos of chest pain with exertion and shortness of breath Consult 03/16 pg,1 Dr. Oconnor Cardiac cath showing relatively well preserved left ventricular systolic function PN 03/[address] Hsu LVEF 50 % to 55% PN 03/18 pg, Dr. Regalado Congestive heart failure PN 03/[address] Burgess Atelectasis with an improved chest xray today and small left effusion most likley DS 03/[address] Last CAD, CABG X5 DS 03/[address] Last Cardiac catheterization showed extensive coronary artery disease, but preserved left ventricular systolic function. RISKS: Consult Dr. Oconnor- Hypertension Consult Dr. Oconnor- Hyperlipidemia Consult Dr. Oconnor- CAD TREATMENTS: Imaging: Chest Xray Imaging- Echocardiogram SEP 24- Mannitol 25 gm SEP 24- Lasix IV 40 mg Op note- CABG X5 (This form is maintained as a part of the permanent medical record) 2014 [employer]. All Rights Reserved [email or web address] [not provided] MTDD
== END 2019-03-21 12:27 | disposition home or self-care (01) | DRG 234 ==
LOC: CCL 13:05 → CCU 15:50 → 2NO 03-19 18:24
PROVIDERS: ADMIT Internal Medicine Cardiovascular Disease; ATTEND Internal Medicine Cardiovascular Disease
PROC: 02100Z9 Bypass Coronary Artery, One Artery from Left Internal Mammary, Open Approach (ICD-10-PCS; principal; 2019-03-16)
PROC: 4A023N7 Measurement of Cardiac Sampling and Pressure, Left Heart, Percutaneous Approach (ICD-10-PCS; 2019-03-16)
PROC: 02100AW Bypass Coronary Artery, One Artery from Aorta with Autologous Arterial Tissue, Open Approach (ICD-10-PCS; 2019-03-16)
PROC: 021209W Bypass Coronary Artery, Three Arteries from Aorta with Autologous Venous Tissue, Open Approach (ICD-10-PCS; 2019-03-16)
PROC: 06BQ4ZZ Excision of Left Saphenous Vein, Percutaneous Endoscopic Approach (ICD-10-PCS; 2019-03-16)
PROC: 03BC4ZZ Excision of Left Radial Artery, Percutaneous Endoscopic Approach (ICD-10-PCS; 2019-03-16)
PROC: 5A1221Z Performance of Cardiac Output, Continuous (ICD-10-PCS; 2019-03-16)
PROC: B2151ZZ Fluoroscopy of Left Heart using Low Osmolar Contrast (ICD-10-PCS; 2019-03-16)
PROC: B2111ZZ Fluoroscopy of Multiple Coronary Arteries using Low Osmolar Contrast (ICD-10-PCS; 2019-03-16)
PROC: 3E033XZ Introduction of Vasopressor into Peripheral Vein, Percutaneous Approach (ICD-10-PCS; 2019-03-17)
DX: I25.119 Atherosclerotic heart disease of native coronary artery with unspecified angina pectoris (principal); J98.11 Atelectasis; E78.5 Hyperlipidemia, unspecified; I11.0 Hypertensive heart disease with heart failure; I50.9 Heart failure, unspecified; M10.9 Gout, unspecified; J40 Bronchitis, not specified as acute or chronic; Z87.891 Personal history of nicotine dependence; Z79.82 Long term (current) use of aspirin; Z79.899 Other long term (current) drug therapy
CPT/HCPCS: 36415; 36416; 36430; 71045; 80048; 80053; 80061; 82805; 84484; 85025; 85610; 85730; 86850; 86900; 86901; 93005; 93010; 93306; 93458; 93798; 94002; 94150; 94640; 94760; 99214; C1769; G0463; J0153; J0690; J1265; J1642; J1644; J1815; J1885; J1940; J2001; J2150; J2250; J2370; J2440; J2704; J2720; J3010; J3370; J3475; J3480; J7050; J7620; P9016; P9045; Q0163; Q9967; S0017; S0028

== ENCOUNTER 2019-04-30 20:08 | Emergency (ER) | payer MEDICARE ==
--- NOTE | 2019-04-30 21:38 | ULT ---
EXAM: Left lower extremity venous duplex ultrasound with color and spectral Doppler imaging: HISTORY: Leg pain and redness COMPARISON: None FINDINGS: Exam performed from the groin to the ankle including the visualized greater saphenous, common femoral , superficial femoral, profunda femoral, popliteal, trifurcation, and posterior tibial veins. There is phasic flow with normal compressibility and normal augmentation at all examined levels. No evidence for intraluminal thrombus. There is some focal edema at the area of redness and associate d swelling in the region of harvested coronary artery bypass grafting veins. No evidence for drainable abscess. IMPRESSION: No evidence for deep venous thrombosis. Focal soft tissue swelling and edematous changes without evidence for drainable abscess.
[2019-04-30] MEDS ORDERED: Cephalexin 250 MG CAP ONE (21:45)
== END 2019-04-30 22:03 | disposition home or self-care (01) ==
LOC: SCSER 20:08
DX: L03.116 Cellulitis of left lower limb (principal); E78.5 Hyperlipidemia, unspecified; E78.00 Pure hypercholesterolemia, unspecified; Z79.82 Long term (current) use of aspirin; Z79.899 Other long term (current) drug therapy

== ENCOUNTER 2020-06-13 10:16 | Outpatient (CLI) | payer MEDICARE ==
--- NOTE | 2020-06-13 12:01 | CT ---
CT NECK WITH CONTRAST: INDICATION: Left-sided neck swelling. The site of concern is marked with skin marker. Skin marker overlies the r egion of the left submandibular gland. FINDINGS: There is an irregularly-shaped calcification within the left submandibular gland measuring 1.0 cm. F indings would indicate a sialolith. Parotid glands and submandibular glands otherwise unremarkable. Thyroid unremarkable with tiny low-density nodule in the left lobe subcentimeter. Nasopharynx unremarkable. Oropharynx and Waldeyer's ring unremarkable. Hypopharynx and larynx unremarkable. Mild asymmetric effacement of the left piriform sinus. However , no definite mass or mucosal density identified at this location. Consider direct evaluation. Parapharyngeal space and retropharyngeal space unremarkable. The senior technical architect space is unremarkable. Review of carotid space shows atherosclerotic calcification in both carotid bulbs and extending into both proximal internal carotid arteries. There is a suggestion of moderate stenosis in the right int ernal carotid artery just beyond its origin due to atherosclerotic calcification. Suggest correlatio n with carotid Doppler, although this may be impeded due to the dense calcified plaque. A catheter a ngiogram may be necessary to adequately assess the degree of stenosis as the dense calcifications may also inhibit assessment on CTA. Review of lymph node levels shows no significant cervical adenopathy. Images through the lung apices clear. The superior mediastinum is unremarkable. Review of the osseous structures shows prominent hypertrophic degenerative changes in the cervical sp ine. Large anterior osteophytes are seen at the C3-4, C4-5, and C5-6 levels. These large osteophyte s are more pronounced to the right of midline and impinge on the prevertebral space. Degenerative di sk changes are prominent at C4-5, C5-6, and C6-7 with posterior spondylosis at these levels which shaun ear to mildly compress the cord and there is foraminal stenosis bilaterally at C5-6 and C6-7. Parana ariana sinuses appear clear. IMPRESSION: 1. There is a sialolith measuring up to 1 cm in the left submandibular gland. This is at the level of the skin marker and probably corresponds to the palpable abnormality. 2. Evidence of significant stenosis in the proximal right internal carotid artery which is incomplet miko assessed due to dense atherosclerotic calcification. Followup recommended as discussed above. 3. 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 4. Asymmetric effacement of the left piriform sinus. Recommend direct visualization. POS: AH
== END 2020-06-13 10:17 | disposition home or self-care (01) ==
LOC: BICCT 10:16
PROVIDERS: ATTEND Specialist
DX: J35.1 Hypertrophy of tonsils (principal); I65.21 Occlusion and stenosis of right carotid artery; M47.812 Spondylosis without myelopathy or radiculopathy, cervical region; M48.02 Spinal stenosis, cervical region; K11.5 Sialolithiasis
CPT/HCPCS: 70491; 82565

== ENCOUNTER 2020-08-16 07:54 | Day surgery (SDC) | payer MEDICARE ==
[2020-08-14 12:05] VITALS: BMI 23.1
[2020-08-16] MEDS ORDERED: Ondansetron PF 4 MG/2 ML Vial ONE (09:00)
[2020-08-16] MEDS ORDERED: Lidocaine 1% PF 5 ML VIAL ONE (09:00)
[2020-08-16] MEDS ORDERED: Glycopyrrolate 0.2 MG/ML 5 ML SYRINGE ONE ×2 (09:00)
[2020-08-16] MEDS ORDERED: ePHEDrine 50 MG/ML VIAL ONE (09:00)
[2020-08-16] MEDS ORDERED: Dexamethasone 20 MG/5 ML VIAL ONE (09:00)
[2020-08-16] MEDS ORDERED: Rocuronium Bromide 10 MG/ML (10ML VIAL) ONE (09:00)
[2020-08-16] MEDS ORDERED: PROPOFOL 200 MG/20 ML VIAL ONE (09:00)
[2020-08-16] MEDS ORDERED: Fentanyl 100 MCG/2 ML VIAL ONE (09:11)
[2020-08-16] MEDS ORDERED: Midazolam HCl 2 mg/2 ml Vial ONE (09:11)
[2020-08-16] MEDS ORDERED: XYLOCAINE 2%-EPI 1:100,000 20 ML VIAL ONE (09:12)
== END 2020-08-16 13:30 | disposition home or self-care (01) ==
LOC: SDC 07:54
PROVIDERS: ATTEND Specialist
PROC: 0CBH0ZZ Excision of Left Submaxillary Gland, Open Approach (ICD-10-PCS; principal; 2020-08-16)
PROC: 0CJS8ZZ Inspection of Larynx, Via Natural or Artificial Opening Endoscopic (ICD-10-PCS; 2020-08-16)
DX: K11.23 Chronic sialoadenitis (principal); K11.5 Sialolithiasis; K12.1 Other forms of stomatitis; M10.9 Gout, unspecified; E78.5 Hyperlipidemia, unspecified; Z79.82 Long term (current) use of aspirin; Z79.899 Other long term (current) drug therapy; Z95.1 Presence of aortocoronary bypass graft
CPT/HCPCS: 51702; 81003; 88307; J1100; J2250; J2405; J2704; J3010; J3490

== ENCOUNTER 2020-08-16 21:36 | Emergency (ER) | payer MEDICARE ==
[2020-08-16 22:16] LABS: Bilirubin Negative (Negative); Blood, Urine Negative (Negative); Clarity Clear (Clear); Glucose, Urine (Dipstick) Normal (Negative); Ketone, Urine Negative (Negative); Leukocyte Negative Leu/uL (Negative); Nitrite Negative (Negative); Protein, Urine (Dipstick) Negative (Neg-Trace); Specific Gravity, Urine 1.012 (1.002-1.036); Urobilinogen Normal mg/dL (Less than 2)
== END 2020-08-17 00:57 | disposition home or self-care (01) ==
LOC: ERS 21:36
DX: R33.9 Retention of urine, unspecified (principal); M10.9 Gout, unspecified; E78.5 Hyperlipidemia, unspecified; E78.00 Pure hypercholesterolemia, unspecified; Z79.899 Other long term (current) drug therapy
CPT/HCPCS: 81003